=== PATIENT | male | born 1940 | race Caucasian/White ===

== ENCOUNTER 2022-01-31 02:15 | Inpatient (IN) | payer OTHER, BC ==
[~2022-01-31] VITALS: Ht 182.9 cm; Wt 96.2 kg
[2022-01-31] MEDS ORDERED: MORPHINE SULFATE 4 MG/ML SYR IM ONE (02:20)
[2022-01-31] MEDS ORDERED: ONDANSETRON 4 MG ODT PO ONE (02:20)
--- NOTE | 2022-01-31 02:20 | NUR ---
PT TAKEN TO BED 1.
--- NOTE | 2022-01-31 02:20 | NUR ---
81 YO M BIBA FROM HOME WITH C/C OF 10/10 CHRONIC CHEST PAIN. PT HAS LUNG CANCER AND RECEIVES MORPHINE IM Q4HR, BUT HAS NOT RECEIVED TONIGHT BECAUSE NO ONE IS AROUND TO ADMINISTER. STATES USUALLY A HOME HEALTH NURSE COMES AROUND IN THE MORNING AND HIS NEIGHBOR AT NIGHT. PT USES 2-3L OF O2 VIA NC AT HOME, SATING AT 96%. PT RECIEVED ASA AND NITROX1 SUBLINGUAL ON ROUTE WITH NO RELIEF. HX:HTN, COPD, LUNG CANCER
--- NOTE | 2022-01-31 02:21 | NUR ---
ERMD ASSESSING PT.
[2022-01-31 02:26] VITALS: BP 117/81
--- NOTE | 2022-01-31 02:26 | NUR ---
LAV AT BEDSIDE.
[2022-01-31 02:36] LABS: BASOPHILS % (AUTO) 0.3 % (0.0-2.0); EOSINOPHILS # (AUTO) 0.1 K/uL (0-0.4); EOSINOPHILS % (AUTO) 1.3 % (0.0-4.0); HEMOGLOBIN 10.7 g/dL (12.0-18.0); LYMPHOCYTES # (AUTO) 0.5 K/uL (2.0-11.5); LYMPHOCYTES % (AUTO) 6.5 % (20.5-51.1); MEAN CORPUSCULAR HEMOGLOBIN 28 pg (27-31); MEAN CORPUSCULAR HGB CONC 33 g/dL (33-37); MONOCYTES # (AUTO) 0.6 K/uL (0.8-1.0); MONOCYTES % (AUTO) 8.3 % (1.7-9.3); NEUTROPHILS # (AUTO) 6.4 K/uL (1.8-7.7); NEUTROPHILS % (AUTO) 83.6 % (42.2-75.2); PLATELET COUNT (AUTO) 211 K/uL (140-450); RED BLOOD CELL COUNT(AUTO) 3.88 MIL/uL (4.20-6.10); RED CELL DISTRIBUTION WIDTH 15.7 % (11.6-13.7); WHITE BLOOD COUNT (AUTO) 7.7 K/uL (4.8-10.8)
[2022-01-31] MEDS ORDERED: MORPHINE SULFATE 4 MG/ML SYR IVP ONE ×2 (02:50→06:45)
--- NOTE | 2022-01-31 02:50 | NUR ---
PT'S CALLED TO CHECK ON PT.
--- NOTE | 2022-01-31 02:55 | NUR ---
PT STATES HE FEEL MUCH BETTER AFTER RECEIVING MORPHINE.
--- NOTE | 2022-01-31 03:00 | NUR ---
ERMD AT BEDSIDE. PT STATES HE HAS A DNR FORM AT HOME. PT EXPRESSED THAT HE DOES NOT WISH TO BE ADMITTED, "I ONLY CAME FOR THE PAIN SHOT TO HELP MY PAIN".
[2022-01-31 03:02] LABS: ALBUMIN 2.8 g/dL (3.4-5.0); ANION GAP 6.8 (8-16); ASPARTATE AMINOTRANSFERASE 29 U/L (15-37); CARBON DIOXIDE 33.5 mmol/L (21-32); CHLORIDE 100 mmol/L (98-107); CREATININE 0.7 mg/dL (0.6-1.3); GLUCOSE 124 mg/dL (74-106); POTASSIUM 4.3 mmol/L (3.5-5.1); SODIUM SERUM 136 mmol/L (136-145); TOTAL BILIRUBIN 0.6 mg/dL (0.0-1.0); UREA NITROGEN, BLOOD 18 mg/dL (7-18)
--- NOTE | 2022-01-31 03:05 | NUR ---
JIMMY PT'S [phone] Addendum: 01/31/22 at 0307 by BRIANNA STATED PT NEEDS TRANSPORT BACK HOME.
--- NOTE | 2022-01-31 03:26 | NUR ---
RAD AT BEDSIDE
--- NOTE | 2022-01-31 03:36 | NUR ---
HANDOFF RECIEVED FROM YANIV LAZO. PT LAYING IN BED. VISIBLE CHEST RISE AND FALL NOTED. PT ON 2.5L O2 VIA NC FOR O2 SUPPLEMENTATION. O2 SAT AT 98%. PAIN CONTROLLED AT THIS TIME. WILL CONTINUE TO MONITOR.
--- NOTE | 2022-01-31 04:55 | NUR ---
O2 SATURATION DROPPED LOW 70s. NASAL CANNULA READJUSTED. O2 SATURATION INCREASED TO 97% ON 2.5L. PT REPOSITION FOR COMFORT. DENIES ANY PAIN AT THIS TIME. ALL NEEDS MET.
--- NOTE | 2022-01-31 05:40 | NUR ---
PT CLEARED FOR DISCHARGE BY DR. TOWNSEND. PT PENDING TRANSPORTATION HOME. PT UNABLE TO PROVIDE TRANSPORT HOME.
--- NOTE | 2022-01-31 06:00 | NUR ---
PT SEEN WITH EYES CLOSED. VISIBLE CHEST RISE AND FALL NOTED. NAD. O2 SAT MAINTAINED AT 93% ON 2.5L NC. WILL CONTINUE TO MONITOR.
--- NOTE | 2022-01-31 06:45 | NUR ---
PT HEARD YELLLING OUT IN PAIN. PT REPORTS 05/[address] CROCKETT NOTIFIED.
--- NOTE | 2022-01-31 06:55 | NUR ---
HANDOFF GIVEN TO YANIV STINSON. TRANSFER OF CARE.
--- NOTE | 2022-01-31 06:55 | NUR ---
PT MEDICATED PER ERMD ORDER.
--- NOTE | 2022-01-31 07:41 | NUR ---
ASSUMED CARE FOR PT.
--- NOTE | 2022-01-31 07:42 | NUR ---
JONNIE PA WALKED TO LAB
--- NOTE | 2022-01-31 07:53 | NUR ---
PT'S CALLED BECAUSE SHE IS CONCERNED THAT PT CANNOT COME HOME BECAUSE SHE IS 75 Y OLD AND HAS A PARALYZED L HAND. SHE IS NOT ABLE TO PROVIDE CARE FOR HER . STATED NEIGHBOR WHICH USED TO HELP IS NO LONGER ABLE TO HELP. PT'S WHISHES TO HAVE HIM ADMITTED BECAUSE SHE DOES NOT HAVE ANYONE TO CARE FOR HIM AT HOME AT THIS TIME. MADE AWARE.
--- NOTE | 2022-01-31 08:18 | NUR ---
Patient will be admitted to care of . Admited to MED SURG. Will go to room 105 B Belongings list completed. Report to YASMEEN PURVIS.
--- NOTE | 2022-01-31 08:29 | NUR ---
PT RESTING, VISIBLE CHEST RISE AND FALL NOTED. NAD. O2 SAT MAINTAINED AT 99% ON 3L NC. WILL CONTINUE TO MONITOR.
[2022-01-31] MEDS ORDERED: ZOLPIDEM 5 MG TAB PO PRN (09:00)
[2022-01-31] MEDS ORDERED: LORazepam 2 MG/ML VIAL IM/IVP PRN (09:00)
[2022-01-31] MEDS ORDERED: ACETAMINOPHEN 325 MG TAB PO PRN (09:00)
[2022-01-31] MEDS ORDERED: MAG SULF 2000 MG/WATER PREMIX 50 ML IV PRN (09:00)
[2022-01-31] MEDS ORDERED: DOCUSATE SODIUM 100 MG GELCAP PO PRN (09:00)
[2022-01-31] MEDS ORDERED: ONDANSETRON 4 MG/2 ML VIAL IM/IVP PRN (09:00)
[2022-01-31] MEDS ORDERED: POTASSIUM CHLORIDE 10 MEQ TABER PO PRN ×2 (09:00)
--- NOTE | 2022-01-31 09:25 | NUR ---
LAB AT BEDSIDE.
[2022-01-31 09:45] VITALS: BP 146/72
--- NOTE | 2022-01-31 09:45 | NUR ---
PT CANNOT RECALL HOME/DOSE MEDS AT THIS TIME, CALLED SHE WILL BRING N HOME MEDS
--- NOTE | 2022-01-31 09:45 | NUR ---
PT ARRIVED FROM ER VIA GURNEY. PT WAS TRANSFERRED TO BED. PT IS AWAKE AND ALERT. A&OX4. ON 3L O2 NC WITH BREATHING UNLABORED. SKIN IS WARM, DRY, AND INTACT. MORPHINE PUMP IN PLACE ON THE RIGHT LOWER BACK. PT IS UNABLE TO AMBULATE. INCONTINENT OF THE BOWEL AND BLADDER WITH DRY DIAPER IN PLACE. IV IS IN THE LEFT AC 18 GAUGE SALINE LOCKED. PT IS STABLE. PLAN OF CARE DISCUSSED.
[2022-01-31] MEDS: MORPHINE SULFATE 4 MG/ML SYR IVP PRN ×3 (10:33→23:15)
--- NOTE | 2022-01-31 11:34 | NUR ---
DC PLANNIN YRS OLD MALE PATIENT WAS ADMITTED FROM HOME WITH A DX OF INTRACTABLE PAIN. PATIENT HAS A HX OF LUNG CANCER S/P CHEMO AT [facility]. CALLED PATIENT'S , SPOKE WITH JIMMY FOX JIMMY PT IS WITH HOME HEALTH COME TO HOME EVERY DAY TO CHECK HIS MORPHINE PUMP. DOMINIQUE MARQUEZ DOESN'T WANT HER TO GO TO SNF AND SHE ALREADY TALKING TO THE HOME HEALTH PERSON MELE WAS ARRANGED FROM [facility] TO TRANSITION TO HOSPICE. JIMMY WANTED THE PATIENT TO GO HOME AND WILL START HOSPICE WITH THEM. NOTIFIED DR LAY. CM TO FOLLOW Addendum: 02/01/22 at 1216 by Mariela Arcos RN DC PLANNING: RECEIVED A CALL FROM PT'S JIMMY DONALD STATED, REQUESTED THE HOSPICE REFERRAL FROM [facility]. PROVIDE [facility] INFORMATION. CM MET PATIENT AT THE BED SIDE WITH YASMEEN PURVIS STATED WANTED TO BE ON HOSPICE. CONTACT [facility] [phone] SPOKE WITH RAJEEV, FAXED ALL PAPERWORK TO [phone] CM TO FOLLOW
[2022-01-31 11:49] LABS: CHOL/HDL RATIO 1.7 (1-4.5); MAGNESIUM 1.6 mg/dL (1.8-2.4); THYROID STIMULATING HORMONE 3.02 uIU/mL (0.34-3.74)
--- NOTE | 2022-01-31 12:00 | NUR ---
SON IS AT BEDSIDE. ASSISTED WITH ADMISSION ASSESSMENT QUESTIONS. PT IS AWAKE AND ALERT. RESPONDING TO QUESTIONS APPROPRIATELY. NO DISTRESS NOTED. PT DENIES PAIN.
[2022-01-31 12:10] LABS: PROTHROMBIN TIME 10.1 secs (10.8-13.4)
--- NOTE | 2022-01-31 14:30 | NUR ---
ROUNDED ON PT. ASKED IF HE WAS IN ANY PAIN AND PT DENIED. PT STATES HE WAS IN PAIN EARLIER BUT NOT ANYMORE. PT IS GOING BACK TO SLEEP. NO DISTRESS AT THIS TIME.
--- NOTE | 2022-01-31 15:53 | NUR ---
PT IS SLEEPING. CHEST RISE AND FALL SYMMETRICAL. ON 3L O2 NC WITH BREATHING UNLABORED. NO DISTRESS NOTED.
[2022-01-31 16:00] VITALS: BP 134/64
[2022-01-31] MEDS: MAG SULF 2000 MG/WATER PREMIX 50 ML IV PRN (17:04)
--- NOTE | 2022-01-31 17:04 | NUR ---
PT WAS GIVEN MAGNESIUM SULFATE 2 GRAM FOR MAGNESIUM LEVEL OF 1.6. EDUCATION WAS PROVIDED AND PT VERBALIZED UNDERSTANDING.
--- NOTE | 2022-01-31 18:30 | NUR ---
CONDOM CATH PLACED WITH DRAINAGE BAG. UNABLE TO COLLECT URINE SAMPLE DUE TO INCONTINENCE. WILL COLLECT SAMPLE WHEN URINE AMOUNT IS SUBSTANTIAL. PT IS STABLE AT THIS TIME. NO DISTRESS NOTED.
--- NOTE | 2022-01-31 18:52 | NUR ---
PT STILL DENIES PAIN. PT STATES THAT THE PAIN HAS IMPROVED SINCE HE ARRIVED. CALLED HIS SON EVERARDO REQUESTED AND THE PT SPOKE TO SON. , TRISTIN, ALSO CALLED AND SPOKE TO PT. PT IS VERY PLEASED WITH THE CARE GIVEN AT THE HOSPITAL STATED BY PT. PT ALSO CRYING STATING THAT HE FEELS LIKE HE IS GOING TO ANY DAY NOW. COMFORT WAS PROVIDED.
--- NOTE | 2022-01-31 19:00 | NUR ---
PT STATES HE HAS PAIN AT A SCALE OF 8/10 GENERALIZED. PT WAS GIVEN MORPHINE IVP PRN FOR PAIN. BP WAS STABLE PRIOR TO ADMINISTRATION OF MEDICATION. WILL CONTINUE TO MONITOR.
--- NOTE | 2022-01-31 19:23 | NUR ---
ENDORSED PT TO STATEMENT SERVICES REPRESENTATIVE NURSE FOR CONTINUITY OF CARE. PT IS STABLE. PLAN OF CARE DISCUSSED.
--- NOTE | 2022-01-31 19:24 | NUR ---
RECEIVED REPORT FROM AM NURSE. PATIENT AWAKE RESTING COMFORTABLY. ON O2 AT 3L NC TOLERATING WELL. NO ACUTE DISTRESS NOTED. ABLE TO COMMUNICATE WITH HIS NEEDS. NO COMPLAINTS OF PAIN AT THIS TIME. ALL SAFETY MEASURES ARE IN PLACE. CALL LIGHT WITHIN REACH. WILL CONTINUE TO MONITOR.
--- NOTE | 2022-01-31 23:15 | NUR ---
PATIENT COMPLAINED OF MODERATE PAIN, MEDICATED WITH MORPHINE ORDERED.
[2022-02-01] VITALS: BP 103/46
--- NOTE | 2022-02-01 00:45 | NUR ---
PATIENT IS SLEEPING. NO S/S OF RESPIRATORY DISTRESS NOTED. CALL LIGHT WITHIN REACH.
[2022-02-01] MEDS: MORPHINE SULFATE 4 MG/ML SYR IVP PRN ×3 (03:59→19:54)
[2022-02-01 06:38] LABS: CARBON DIOXIDE 32.4 mmol/L (21-32); CHLORIDE 103 mmol/L (98-107); CREATININE 0.7 mg/dL (0.6-1.3); GLUCOSE 93 mg/dL (74-106); POTASSIUM 4.4 mmol/L (3.5-5.1); SODIUM SERUM 137 mmol/L (136-145); UREA NITROGEN, BLOOD 12 mg/dL (7-18)
[2022-02-01 06:41] LABS: BASOPHILS % (AUTO) 0.4 % (0.0-2.0); EOSINOPHILS # (AUTO) 0.2 K/uL (0-0.4); EOSINOPHILS % (AUTO) 3.2 % (0.0-4.0); HEMATOCRIT 35.5 % (36-52); HEMOGLOBIN 11.4 g/dL (12.0-18.0); LYMPHOCYTES # (AUTO) 0.6 K/uL (2.0-11.5); LYMPHOCYTES % (AUTO) 9.4 % (20.5-51.1); MEAN CORPUSCULAR HEMOGLOBIN 27 pg (27-31); MEAN CORPUSCULAR HGB CONC 32 g/dL (33-37); MEAN CORPUSCULAR VOLUME 85.3 fL (80-94); MONOCYTES # (AUTO) 0.6 K/uL (0.8-1.0); MONOCYTES % (AUTO) 9.8 % (1.7-9.3); NEUTROPHILS # (AUTO) 4.6 K/uL (1.8-7.7); NEUTROPHILS % (AUTO) 77.2 % (42.2-75.2); PLATELET COUNT (AUTO) 201 K/uL (140-450); RED BLOOD CELL COUNT(AUTO) 4.17 MIL/uL (4.20-6.10); RED CELL DISTRIBUTION WIDTH 15.7 % (11.6-13.7)
[2022-02-01 06:49] LABS: MAGNESIUM 1.6 mg/dL (1.8-2.4); PHOSPHORUS 2.8 mg/dL (2.5-4.9)
--- NOTE | 2022-02-01 07:25 | NUR ---
RECEIVED BEDSIDE REPORT FROM GRAIN DRIER OPERATOR NURSE FOR CONTINUITY OF CARE. PT IS AWAKE AND ALERT. A&OX4. ON 3L O2 NC WITH BREATHING UNLABORED. PT IS INCONTINENT OF THE BOWEL AND BLADDER. SKIN IS WARM, DRY, AND INTACT. IV IS IN THE LEFT AC 18 GAUGE SALINE LOCKED. PT IS STABLE. DENIES PAIN. PLAN OF CARE DISCUSSED.
--- NOTE | 2022-02-01 07:41 | NUR ---
ENDORSED PATIENT TO AM NURSE FOR CONTINUITY OF CARE. PT IN STABLE CONDITION.
[2022-02-01 08:00] VITALS: BP_SYST 126; BP_SYST 138; BP_DIAS 69; BP_DIAS 75
[2022-02-01 08:08] LABS: T4 (THYROXINE) 5.6 ug/dL (4.5-12.0)
--- NOTE | 2022-02-01 08:30 | NUR ---
PATIENT HAS BEEN SCREENED AND CATEGORIZED HIGH NUTRITION RISK. PATIENT WILL BE SEEN WITHIN 1-2 DAYS OF ADMISSION. 02/01/22 RECEIVED REFERRAL FOR UNINTENTIONAL WEIGHT LOSS [address]
--- NOTE | 2022-02-01 09:43 | NUR ---
WOUND CARE EVALUATION NOTE: SKIN ASSESSMENT DONE WITH THIS 81 Y/O PT. PASS MEDICAL HX OF RIGHT LUNG CANCER, S/P CHEMOTHERAPY AND RADIATION. PT IS ON A HOME HOSPICE CARE WITH MORPHINE PUMP. ALL ABOVE INFORMATION OBTAINED FROM ADMISSION H&P. PT. ADMITTED WITH GENERALIZES WEAKNESS S/P FALL. PT. SKIN WARM AND DRY, NO OPEN WOUND. PT. NOT ANSWERING WHEN HIS NAME WAS CALLED AND TALKING TO HIM. PT. WITH LOW ROSIBEL SCALE AT MODERATE TO HIGH RISK, CONTINUE TO FOLLOW PRESSURE INJURY PREVENTION INTERVENTIONS. -APPLY HYDRAGUARD TO LIMBS AND PERINEUM BID AND SLIMER -POSITIONING: TURN AND REPOSITION PATIENT Q 2H OR SOONER USE PILLOWS TO KEEP BONY PROMINENCES FROM DIRECT CONTACT WITH SURFACES USE REPOSITIONING WEDGES TO PROVIDE 30-DEGREE ANGLE FOR SIDE LYING POSITIONS OFFLOADING OR FOAM DRESSING TO ALL TUBING TO PREVENT MEDICAL DEVICES RELATED PRESSURE INJURY -RE-EVALUATING AND MANAGING INCONTINENCE MONITOR SKIN CONDITION DURING POSITION CHANGE DO NOT MASSAGE REDNESS, BONY PROMINENCES FREQUENT VIDHYA-CARE AND PROVIDE BARRIER CREAMS PRN IF SOILING MOISTURE CONTROL BY OFFER BED ATKINSON/URINAL /ABSORBENT PAD TO WICK AND HOLD MOISTURE KEEP SKIN DRY AND PROTECT FROM FRICTION -MANAGE FRICTION/SHEAR/MOBILITY KEEP HOB AT THE LOWEST LEVEL OF ELEVATION NO MORE THAN 30 DEGREE UNLESS OTHERWISE CONTRAINDICATED USE LIFT SHEET OR TRANSFER DEVICE TO MOVE PATIENT AND PREVENT LATERAL SHEER. PROTECT HEELS, ELBOWS BONY PROMINENCES WITH SKIN BERRIES OR FOAM DRESSING IF EXPOSED TO FRICTION OFFLOAD BILATERAL HEELS BY PLACING PILLOWS UNDER CALVES AT ALL TIMES, UNLESS OTHERWISE CONTRAINDICATED -PRESSURE REDISTRIBUTION SURFACE THERAPY [place] ISOFLEX MATTRESS -NUTRITION: PLEASE FOLLOW RD RECOMMENDATIONS AND OFFER NUTRITION SUPPLEMENTS IF ORDERED. PLEASE CONTACT WOUND CARE NURSE FOR ANY QUESTION AND CHANGE OF WOUND CONDITION. Addendum: 02/01/22 at 1038 by Kortney Campbell RN (Grace) DELETED ABOVE INFORMATION, WRONG ENTRY
--- NOTE | 2022-02-01 10:00 | NUR ---
PT IS AWAKE AND ALERT. SPEAKING WITH DR. LAY ABOUT HOSPICE CARE. PT STATES TO ME THAT HE WANTS HOSPICE BUT DOES NOT WANT TO HURT SON, DAIANA, FEELINGS WHO IS OUTSIDE THE ROOM. PT STATES HE DOES NOT WANT TO BE IN PAIN ANYMORE. DR. LAY DISCUSSED OPTIONS WITH PATIENT AND SON, EVERARDO. SHE STATED SHE WILL SPEAK WITH THE ABOUT THESE OPTIONS OVER THE PHONE. DISCHARGE IS NO LONGER ACTIVE, PT WILL BE D/C TOMORROW POSSIBLY.
[2022-02-01] MEDS ORDERED: MORP4SOL10 IVP (10:02)
[2022-02-01] MEDS ORDERED: ATI2I IM/IVP (10:02)
[2022-02-01] MEDS ORDERED: ACET-1182 PO (10:02)
[2022-02-01] MEDS ORDERED: ZOLP5TAB1 PO (10:02)
--- NOTE | 2022-02-01 10:39 | NUR ---
WOUND CARE EVALUATION NOTE: SKIN ASSESSMENT DONE WITH THIS 81 Y/O PT. ADMITTED WITH GENERALIZES WEAKNESS S/P FALL. PT. SKIN WARM AND DRY, SKIN TEARS TO RIGHT POSTERIOR SHOULDER 0.5X0.5CM SUPERFICIAL DEPTH, WOUND BED DARK RED, MOIST NO ODOR, VIDHYA-WOUND DRY AND INTACT. SKIN TEARS TO RIGHT POSTERIOR LATERAL BACK(WAIST AREA) 3X5X0.1CM, WOUND BED RED AND MOIST, NO ODOR, VIDHYA-WOUND SKIN DRY AND INTACT. NO S/S OF INFECTION.PT. ADMITTED WITH LOW ROSIBEL SCALE AT MODERATE TO HIGH RISK, CONTINUE TO FOLLOW PRESSURE INJURY PREVENTION INTERVENTIONS. -CLEANSE SKIN TEARS TO RIGHT POSTERIOR SHOULDER AND RIGHT POSTERIOR BACK WITH NS, PAT DRY, APPLY OIL EMULSION DRESSING AND COVER WITH DRY DRESSING QD AND PRN IF SOILING -APPLY HYDRAGUARD TO LIMBS AND PERINEUM BID AND FIBERGLASS BONDING MACHINE TENDER -POSITIONING: TURN AND REPOSITION PATIENT Q 2H OR SOONER USE PILLOWS TO KEEP BONY PROMINENCES FROM DIRECT CONTACT WITH SURFACES USE REPOSITIONING WEDGES TO PROVIDE 30-DEGREE ANGLE FOR SIDE LYING POSITIONS OFFLOADING OR FOAM DRESSING TO ALL TUBING TO PREVENT MEDICAL DEVICES RELATED PRESSURE INJURY -RE-EVALUATING AND MANAGING INCONTINENCE MONITOR SKIN CONDITION DURING POSITION CHANGE DO NOT MASSAGE REDNESS, BONY PROMINENCES FREQUENT VIDHYA-CARE AND PROVIDE BARRIER CREAMS PRN IF SOILING MOISTURE CONTROL BY OFFER BED ATKINSON/URINAL /ABSORBENT PAD TO WICK AND HOLD MOISTURE KEEP SKIN DRY AND PROTECT FROM FRICTION -MANAGE FRICTION/SHEAR/MOBILITY KEEP HOB AT THE LOWEST LEVEL OF ELEVATION NO MORE THAN 30 DEGREE UNLESS OTHERWISE CONTRAINDICATED USE LIFT SHEET OR TRANSFER DEVICE TO MOVE PATIENT AND PREVENT LATERAL SHEER. PROTECT HEELS, ELBOWS BONY PROMINENCES WITH SKIN BERRIES OR FOAM DRESSING IF EXPOSED TO FRICTION OFFLOAD BILATERAL HEELS BY PLACING PILLOWS UNDER CALVES AT ALL TIMES, UNLESS OTHERWISE CONTRAINDICATED -PRESSURE REDISTRIBUTION SURFACE THERAPY WESLEY ISOFLEX MATTRESS -NUTRITION: PLEASE FOLLOW RD RECOMMENDATIONS AND OFFER NUTRITION SUPPLEMENTS IF ORDERED. PLEASE CONTACT WOUND CARE NURSE FOR ANY QUESTION AND CHANGE OF WOUND CONDITION.
--- NOTE | 2022-02-01 12:00 | NUR ---
PT IS SLEEPING. NO DISTRESS NOTED ON 3L O2 NC. BREATHING IS UNLABORED. NO PAIN NOTED. FAMILY NO LONGER AT BEDSIDE. WILL CONTINUE TO MONITOR.
[2022-02-01] MEDS: MAG SULF 2000 MG/WATER PREMIX 50 ML IV PRN (12:52)
--- NOTE | 2022-02-01 12:53 | NUR ---
PT STATES PAIN AT A SCALE OF 8/10 ALL OVER BODY. PT IS CRYING AND SHOWING FACIAL GRIMACE. PT WAS GIVEN MORPHINE FOR PAIN ORDERED. BP WAS 113/75 PRIOR TO ADMINISTRATION OF MEDICATION. WILL CONTINUE TO MONITOR.
--- NOTE | 2022-02-01 15:00 | NUR ---
PT IS AWAKE AND TALKING APPROPRIATELY. NO RESPIRATORY DISTRESS NOTED. PT IS ON 3L O2 NC. BREATHING IS UNLABORED. IV IS INTACT. PT DENIES ANY PAIN AT THIS TIME. PT IS STABLE.
--- NOTE | 2022-02-01 15:47 | NUR ---
DC PLANNING PATIENT IS AN 81 YR OLD PATIENT WHO PRESENTED TO [facility]/ED ON 01/31/22 FOR CHRONIC CONSTANT SEVERE PRESSURE LEFT SIDED CHEST PAIN. SW MET WITH PATIENT AND EVERARDO (SON) AT BEDSIDE FOR THE PURPOSE OF DISCUSSING AND GATHERING COLLATERAL INFORMATION. PATIENT LIVES AT HOME WITH HIS (JIMMY DONALD). SON AND PATIENT REPORT EMERGENCY CONTACT AND MEDICAL DECISION MAKER JIMMY DONALD (). EVERARDO REPORTS THAT FATHER MEETS WITH HIS PCP AT [facility], REGULARLY. PATIENT MEETS WITH PCP ABOUT EVERY THREE WEEKS. EVERARDO DENIES BARRIERS IN ACCESSING MEDICATIONS AND ACQUIRES MEDICATIONS FROM [facility] THE [facility]. EVERARDO REPORTS THAT PATIENT WILL BE RETURNING HOME AND WILL BEGIN HOSPICE CARE. PATIENT CURRENTLY RECEIVES HOME HEALTH AND ADDITIONAL (2HRS) OF SUPPORT DAILY FOR PATIENTS CARE. SW INQUIRED ON RESOURCES NEEDED AT THIS TIME;PATIENT AND SON DECLINED AT THIS TIME.
[2022-02-01 16:00] VITALS: BP 126/63
--- NOTE | 2022-02-01 16:13 | NUR ---
02/01/22 RD INITIAL ASSESSMENT COMPLETED PLEASE REFER TO NUTRITION ASSESSMENT UNDER CARE ACTIVITY FOR ESTIMATED NUTRITIONAL NEEDS. 1. CONTINUE REGULAR DIET TOLERATED 2. RECOMMEND ENSURE ENLIVE AND ARNEL BID -PROVIDE 816 KCAL AND 45 GM PROTEIN DAILY IF 100% CONSUMED 3. RD TO FOLLOW-UP 2-3 DAYS, HIGH RISK NAKITA HO RD
--- NOTE | 2022-02-01 17:10 | NUR ---
PT IS SLEEPING. CHEST RISE AND FALL IS SYMMETRICAL. PT IS STABLE. CALL LIGHT WITHIN REACH. WILL MONITOR.
--- NOTE | 2022-02-01 19:30 | NUR ---
ENDORSED PT TO SENIOR OFFICE SUPPORT ASSISTANT SOSA NURSE FOR CONTINUITY OF CARE. PT IS STABLE. PLAN OF CARE DISCUSSED.
--- NOTE | 2022-02-01 19:54 | NUR ---
PATIENT IS AAOX4, NO ACUTE DISTRESS, RESPIRATION REGULAR NON LABORED. O2 AT 3L NC TOLERATING WELL. PATIENT COMPLAINED OF MODERATE PAIN, MEDICATED WITH MORPHINE PER MD ORDERED. ALL SAFETY MEASURES IN PLACE. CALL LIGHT WITHIN REACH. WILL CONTINUE TO MONITOR.
[2022-02-02] VITALS: BP 133/64
[2022-02-02] MEDS: MORPHINE SULFATE 4 MG/ML SYR IVP PRN ×4 (00:39→15:16)
--- NOTE | 2022-02-02 05:16 | NUR ---
PATIENT COMPLAINED OF PAIN. MEDICATED.
[2022-02-02 07:25] LABS: BASOPHILS % (AUTO) 0.4 % (0.0-2.0); EOSINOPHILS # (AUTO) 0.1 K/uL (0-0.4); EOSINOPHILS % (AUTO) 2.4 % (0.0-4.0); HEMATOCRIT 33.9 % (36-52); LYMPHOCYTES # (AUTO) 0.5 K/uL (2.0-11.5); LYMPHOCYTES % (AUTO) 8.7 % (20.5-51.1); MEAN CORPUSCULAR HEMOGLOBIN 27 pg (27-31); MEAN CORPUSCULAR HGB CONC 33 g/dL (33-37); MEAN CORPUSCULAR VOLUME 84.2 fL (80-94); MONOCYTES # (AUTO) 0.6 K/uL (0.8-1.0); MONOCYTES % (AUTO) 10.1 % (1.7-9.3); NEUTROPHILS # (AUTO) 4.4 K/uL (1.8-7.7); NEUTROPHILS % (AUTO) 78.4 % (42.2-75.2); PLATELET COUNT (AUTO) 199 K/uL (140-450); RED BLOOD CELL COUNT(AUTO) 4.03 MIL/uL (4.20-6.10); RED CELL DISTRIBUTION WIDTH 15.9 % (11.6-13.7); WHITE BLOOD COUNT (AUTO) 5.6 K/uL (4.8-10.8)
--- NOTE | 2022-02-02 07:26 | NUR ---
ENDORSED TO AM NURSE FOR CONTINUITY OF CARE. PT IS STABLE.
[2022-02-02 08:00] VITALS: BP 128/66
[2022-02-02 08:09] LABS: ANION GAP 7.7 (8-16); CARBON DIOXIDE 32.4 mmol/L (21-32); CHLORIDE 102 mmol/L (98-107); CREATININE 0.6 mg/dL (0.6-1.3); GLUCOSE 94 mg/dL (74-106); MAGNESIUM 1.6 mg/dL (1.8-2.4); PHOSPHORUS 2.7 mg/dL (2.5-4.9); POTASSIUM 4.1 mmol/L (3.5-5.1); SODIUM SERUM 138 mmol/L (136-145); UREA NITROGEN, BLOOD 11 mg/dL (7-18)
[2022-02-02] MEDS: MAG SULF 2000 MG/WATER PREMIX 50 ML IV PRN (10:04)
[2022-02-02] MEDS ORDERED: PSEUDOEPHEDRINE 30 MG TAB PO PRN (11:15)
== END 2022-02-02 15:20 | disposition hospice, home (50) | DRG 947 ==
LOC: MED 02:15 → MMU 08:18 → MTU 09:14
DX: G89.3 Neoplasm related pain (acute) (chronic) (principal); E43 Unspecified severe protein-calorie malnutrition; C34.90 Malignant neoplasm of unspecified part of unspecified bronchus or lung; Z20.822 Contact with and (suspected) exposure to COVID-19; D63.8 Anemia in other chronic diseases classified elsewhere; E83.42 Hypomagnesemia; Z95.1 Presence of aortocoronary bypass graft; Z51.5 Encounter for palliative care; Z68.28 Body mass index [BMI] 28.0-28.9, adult
CPT/HCPCS: 36415; 71045; 80048; 80053; 82140; 82150; 83036; 83690; 83735; 83880; 84100; 84134; 84436; 84443; 84484; 85025; 85610; 85730; 87081; 96372; 96374; 99285; J2060; J2270; J3475; Q0092; Q0162